=== PATIENT | female | born 1995 | race Caucasian/White ===

== ENCOUNTER 2017-12-09 01:15 | Emergency (ER) | payer MEDICAID, SELFPAY ==
[2017-12-09 01:16] VITALS: BP 137/61; PULSE 85; RESP 18; TEMP 36.6; O2SAT 98; BMI 48.1
--- NOTE | 2017-12-09 01:43 | ED.VISSUMM ---
- ER Visit Summary Date of Service: 12/09/17 Chief Complaint: Anxiety History of Present Illness: The patient is a 22 F with a history of depression and anxiety. She was on Zoloft but stopped that medication when she was found that she was . She is currently 27 weeks. 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 The resident apparently was trying to hang himself that she has been upset all evening. Patient states she feels like she is on the verge of having a panic attack. Patient denies suicidal thoughts. Physical Examination: Vital signs are unremarkable. Patient sitting upright in bed no acute distress. Heart is regular rate and rhythm. Lung sounds are clear. Abdomen is soft and nontender. Test Results: [] Emergency Department Course and Treatment: heart tones are measured at 147. Patient has had no abdominal cramping or spotting. I spoke with Dr. Irene, on-call for DIRECTOR OF SOFTWARE DEVELOPMENT. At this point she can use Vistaril, BuSpar, or Benadryl. Should be given dose of Vistaril here and a prescription for the same. Patient may also restart her Zoloft and this has been relayed to her. Treatment Plan: [] Disposition: Discharge Impression: 1. Anxiety 2. 27 week This note was generated with [employer] dictation software. It may contain incorrect words, spelling, and punctuation that were not noted in review of the chart prior to signing ED Disposition - Plan for ED Patient: Chief Complaint: Anxiety Referrals: Holly Boone NP-C [Primary Care Provider] -
--- NOTE | 2017-12-09 01:45 | ED.DEP ---
ED Disposition - Plan for ED Patient: Disposition: Home or Assisted Living Chief Complaint: Anxiety Instructions: ED Panic Attack Prescriptions: hydrOXYzine pamoate capsule [Vistaril] 50 mg PO TID PRN PRN #30 capsule PRN Reason: Anxiety Referrals: Holly Boone NP-C [Primary Care Provider] - Leona Watts MD [STAFF PHYSICIAN] -
[2017-12-09] MEDS: hydrOXYzine PAM 25 MG Capsule 50 MG PO (01:48)
[2017-12-09 01:58] VITALS: PULSE 86; RESP 18; O2SAT 99
== END 2017-12-09 01:58 | disposition home or self-care (01) ==
PROVIDERS: Emergency Provider Emergency Medicine; Family Provider Nurse Practitioner Family; PCP Nurse Practitioner Family
DX: O99.342 Other mental disorders complicating pregnancy, second trimester (principal); F41.9 Anxiety disorder, unspecified; F32.9 Major depressive disorder, single episode, unspecified; Z3A.27 27 weeks gestation of pregnancy
CPT/HCPCS: 99283

== ENCOUNTER 2018-03-08 16:20 | Outpatient (CLI) | payer MEDICAID, SELFPAY ==
[2018-03-08 16:32] VITALS: BMI 46.7
[2018-03-08 17:14] LABS: Hematocrit 36.8 % (37-47); Hemoglobin 12.4 g/dl (12.0-15.0); Mean Corp Hgb Conc 33.7 g/gl (32-36); Mean Corpuscular Hgb 27.8 pg (27.0-32.0); Mean Corpuscular Volume 82.5 fL (81-99); Mean Platelet Vol. 11.2 fl (6.2-12.0); Platelet Count 263 K/mm3 (150-450); RBC Distribution Width CV 14.6 % (11.6-14.6); Red Blood Count 4.46 M/mm3 (4.2-5.4); White Blood Count 11.9 K/mm3 (4.4-11.0)
[2018-03-08 17:16] LABS: Scan Indicated on CBC? Y/N NO
--- NOTE | 2018-03-08 17:24 | OB.TRI.NOTE ---
History of Present Illness Date of Service: 03/08/18 Was patient seen by the physician?: Yes Reason For Visit: BLOOD PRESSURE Final SANDEEP: 03/10/18 Gestational age: 39 Weeks and 5 Days Allergies No Known Allergies Allergy (Verified 12/09/17 01:19) NST - FHR Rate Baby A Baseline: 125 Variability:: Moderate Accelerations:: 15 x 15 Decelerations:: None NST Reactive:: Yes Uterine Activity:: quiet Impression/Plan Reactive NST for elevated BP in BP's normal on L&D If labs normal will d/c home
[2018-03-08 17:27] LABS: International Normalized Ratio 0.9; Prothrombin Time (Protime)PT. 12.5 SECONDS (11.7-14.9)
[2018-03-08 17:28] LABS: Partial Thromboplast Time 28.3 Seconds (24.1-36.2)
[2018-03-08 17:34] LABS: AST(SGOT) 11 U/L (15-37); Alanine Aminotransfer ALT/SGPT 10 U/L (13-56); Creatinine, Serum 0.52 mg/dL (0.55-1.02); EST Glomerular Filtration Rate 158 mL/min (>60); Est Glom Filt Rate - Afr Amer 191 mL/min (>60); Estimated Creatinine Clearance 155.29 ml/min; Uric Acid 5.7 mg/dL (2.6-6.0)
[2018-03-08 18:23] LABS: Protein, Urine (Random) 31.5 mg/dL (<11.9); Protein:Creat Ratio 258 mg/g CRE (0-200)
== END 2018-03-08 18:10 | disposition home or self-care (01) ==
LOC: WPOUT 16:24 → WP 16:24
PROVIDERS: Family Provider Nurse Practitioner Family; PCP Nurse Practitioner Family; Visit Provider Obstetrics & Gynecology
DX: O26.893 Other specified pregnancy related conditions, third trimester (principal); R03.0 Elevated blood-pressure reading, without diagnosis of hypertension; Z3A.39 39 weeks gestation of pregnancy
CPT/HCPCS: 59025; 59050; 82565; 82570; 84156; 84450; 84460; 84550; 85027; 85610; 85730; 99218; G0378

== ENCOUNTER 2018-03-16 17:05 | Inpatient (IN) | payer MEDICAID, SELFPAY ==
[2018-03-16] MEDS: Lactated Ringers 1,000 ML 50 ML IV (17:30)
[2018-03-16 18:01] VITALS: BMI 44.8
[2018-03-16 18:05] LABS: Hematocrit 36.8 % (37-47); Hemoglobin 12.4 g/dl (12.0-15.0); Mean Corp Hgb Conc 33.7 g/gl (32-36); Mean Corpuscular Hgb 27.7 pg (27.0-32.0); Mean Corpuscular Volume 82.3 fL (81-99); Mean Platelet Vol. 11.1 fl (6.2-12.0); Platelet Count 228 K/mm3 (150-450); RBC Distribution Width CV 14.9 % (11.6-14.6); RBC Distribution Width SD 43.7 fl (35.1-43.9); Red Blood Count 4.47 M/mm3 (4.2-5.4)
[2018-03-16 18:10] LABS: Scan Indicated on CBC? Y/N NO
[2018-03-16] MEDS: miSOPROStol 25 MCG TABLET VAGINAL (18:25)
--- NOTE | 2018-03-16 20:32 | PCM.HP.OB ---
History Date of Admission: 03/16/18 Final SANDEEP: 03/10/18 Final SANDEEP Source: US <20 weeks Gestational age: 40 Weeks and 6 Days History of this : This is a 22 year-old, G1, P0, at 40.6 weeks gestational age here for IOL due to Post edc. pt reports no vaginal bleeding, LOF or regular contractions. pt reports good fm. Following patient for LGA- last ultrasound done in office on 03/12/18 showed EFW approx 4000grams- 8lb 14oz. pt had abnormal 1hr GCT but passed 3hr GTT with only one abnormal value. Allergies No Known Allergies Allergy (Verified 12/09/17 01:19) Home Medications: Home Medications Pnv No.122/Iron/Folic Acid [ Multi Tablet] 1 each PO DAILY 12/09/17 hydrOXYzine pamoate capsule [Vistaril] 25 mg PO TID PRN PRN 03/16/18 Smoking Status: Never smoker Alcohol: None Number of Fetus(es): 1 Heart Tracin mod taylor, + accels no decels TOCO Analysis: irregular History Past Pregnancies: Past Pregnancies Delivery Date Name GA/Weeks Outcome Route Weight Infant Gender Labor Length Anesthesia Delivery Location Provider FOB Labs: O+, HIV neg, HEP B neg, Rub Imm, syphilis neg, GBS neg Expected Delivery Method: Spontaneous Vaginal Review of Systems Constitutional: Denies: Anorexia HEENT: Denies: Head Aches Cardiovascular: Denies: Chest Pain Respiratory: Denies: Cough Gastrointestinal: Denies: Abdominal Pain Physical Exam General: Alert, Oriented x3 Abdomen: Soft, Non Tender, Gravid Neurological: Cranial nerves II-XII grossly intact DIRECTOR EQUIPMENT: Normal external genitalia Estimated gestational size: Large for gestational age Presentation: Cephalic Cervix Dilation (cm): 4 Station: -2 Effacement (%): 70 Assessment/Plan This is a 22 year-old, G1, P0, at 40.6 weeks gestational age here for IOL for POST EDC 1) received one dose of vaginal cytotec- made cervical change- AROM performed - IFM and IUPC placed. ?? light meconium but only minimal fluid expelled after AROM 2) Pitocin to start at approx 10:30pm 3) monitor fhr/toco 4) epidural for pain 5) anticipate
--- NOTE | 2018-03-16 20:37 | HP.PCM_ITS ---
History Date of Admission: 03/16/18 Final SANDEEP: 03/10/18 Final SANDEEP Source: US <20 weeks Gestational age: 40 Weeks and 6 Days History of this : This is a 22 year-old, G1, P0, at 40.6 weeks gestational age here for IOL due to Post edc. pt reports no vaginal bleeding, LOF or regular contractions. pt reports good fm. Following patient for LGA- last ultrasound done in office on showed EFW approx 4000grams- 8lb 14oz. pt had abnormal 1hr GCT but passed 3hr GTT with only one abnormal value. Allergies No Known Allergies Allergy (Verified 12/09/17 01:19) Home Medications: Home Medications Pnv No.122/Iron/Folic Acid [ Multi Tablet] 1 each PO DAILY 12/09/17 hydrOXYzine pamoate capsule [Vistaril] 25 mg PO TID PRN PRN 03/16/18 Smoking Status: Never smoker Alcohol: None Number of Fetus(es): 1 Heart Tracin mod taylor, + accels no decels TOCO Analysis: irregular History Past Pregnancies: Past Pregnancies Delivery Date Name GA/Weeks Outcome Route Weight Infant Gender Labor Length Anesthesia Delivery Location Provider FOB Labs: O+, HIV neg, HEP B neg, Rub Imm, syphilis neg, GBS neg Expected Infant Delivery Method: Spontaneous Vaginal Review of Systems Constitutional: Denies: Anorexia HEENT: Denies: Head Aches Cardiovascular: Denies: Chest Pain Respiratory: Denies: Cough Gastrointestinal: Denies: Abdominal Pain Physical Exam General: Alert, Oriented x3 Abdomen: Soft, Non Tender, Gravid Neurological: Cranial nerves II-XII grossly intact GOLD BURNISHER: Normal external genitalia Estimated gestational size: Large for gestational age Presentation: Cephalic Cervix Dilation (cm): 4 Station: -2 Effacement (%): 70 Assessment/Plan This is a 22 year-old, G1, P0, at 40.6 weeks gestational age here for IOL for POST EDC 1) received one dose of vaginal cytotec- made cervical change- AROM performed - IFM and IUPC placed. ?? light meconium but only minimal fluid expelled after AROM 2) Pitocin to start at approx 10:30pm 3) monitor fhr/toco 4) epidural for pain 5) anticipate
[2018-03-16] MEDS: Oxytocin 30 units/NS 500 ml 30 UNITS/500 ML IV.SOLN IV (22:24)
[2018-03-17] MEDS: Lactated Ringers 1,000 ML 50 ML IV ×3 (00:29→09:38)
[2018-03-17] MEDS: fentaNYL-bupivacaine (epidural) 100 ML BAG EPIDURAL ×2 (00:52→05:22)
[2018-03-17] MEDS: Oxytocin 30 units/NS 500 ml 30 UNITS/500 ML IV.SOLN 334 UNITS IV (08:08)
[2018-03-17] MEDS: Oxytocin 30 units/NS 500 ml 30 UNITS/500 ML IV.SOLN 167 UNITS IV (08:38)
--- NOTE | 2018-03-17 09:00 | NURSING ---
See hemorrhage record for post-delivery hemorrhage.
--- NOTE | 2018-03-17 09:07 | OP.PCM_ITS ---
Vaginal Delivery Maternal Presentation: Medically Indicated Induction Method of Induction: Pitocin, Amniotomy, Cytotec Medical Reason for Induction: Post term Amniotic Membrane Rupture Type: Artificial Amniotic Fluid Description: Lightly stained meconium Final SANDEEP: 03/10/18 Gestational age: 41 Weeks and 0 Days Date of Procedure: 03/17/18 Pre-Operative Diagnosis: POST TERM Post-Operative Diagnosis: LIVE MALE INFANT, POST HEMORRHAGE Surgery/ Procedure Performed: Spontaneous Vaginal Delivery Type of Anesthesia: Epidural Description of Procedure: PT PUSHED FOR APPROXIMATELY 3.5- ON MY ARRIVAL FETUS WAS OP, GENTLE ROTATION TO ABISAI AND PATIENT DELIVERED WITH GOOD MATERNAL EFFORT- NUCHAL X 1 AND AROUND BODY - INFANT STUNNED AT DELIVERY- CORD CLAMPED AND CUT AND HANDED TO NURSERY TEAM. MECONIUM NOTED AT DELIVERY. SMALL FIRST DEGREE VAGINAL LACERATION NOTED AT POSTERIOR [place]CHE[place]E AND RIGHT LATERAL VAGINAL WALL - PLACENTA WAS DELIVERED SPONTANEOUSLY WITHOUT COMPLICATION. ONCE DELIVERY OF PLACENTA LARGE OPEN SINUS NOTED FROM LOWER UTERINE SEGMENT. THE CERVIX WAS EVALUATED AND NO LACERATIONS WERE NOTED. FUNDAL MASSAGE, INTERNAL EXPLORATION AND ULTRASOUND PERFORMED- NO RETAINED POC NOTED. CONTINUED WITH MASSAGE- METHERGINE GIVEN WITHOUT ADEQUATE RESPONSE, EXTRA HELP TO ROOM CALLED FOR- HEMABATE GIVEN DIRECTLY INTO LOWER UTERINE SEGMENT AND CYTOTEC PER RECTUM. BLEEDING STILL PERSISTED- NO OTHER LACERATION WERE NOTED- STILL APPRECIATED BRISK BLEEDING FROM LOWER UTERINE SEGMENT. AT THIS TIME BALLOON TAMPONADE WAS PLACED WITH 300CC NS- PT THEN PROCEEDED TO GET SICK AND BALLOON EXPELLED DURING MATERNAL VOMITING. AT THIS TIME FUNDAL MASSAGE WAS STILL IN PROCESS- BLEEDING WAS NOTED TO BE SLOWING. TOTAL EBL APPROX 1200CC. A SECOND IV LINE WAS STARTED. WILL REPEAT CBC IN APPROX 3 HOURS FROM NOW AND AGAIN TOMORROW- WILL REPEAT SOONER IF PATIENT IS SYMPTOMATIC. Presentation: Vertex Placental Delivery Description: Spontaneous Placenta Disposition: [facility] Cord Vessel Description: 3 Vessels Nuchal Cord Compression: Without compression Cord Entanglement: Around neck x 1, loose Drain: Plascencia to straight drain Estimated Blood Loss: 1200 A gender: Male (1 minute): 6 (5 minute): 9 Episiotomy Description: None Laceration: Vaginal Extension/lac - REPAIRED WITH 2-0 VICRYL, SMALL BLEEDING NOTED BY CLITORAL ANTUNEZ- PRESSURE HELD- STILL WITH SOME BLEEDING- 3-0 RAPIDE INTERRUPTED SUTURE PLACED FOR HEMOSTASIS, 1st degree Medications given after delivery: IV Pitocin, IM Methergin, IM Hemabate, - - CYTOTEC PER RECTUM. Complications: - - POST HEMORRHAGE
[2018-03-17] MEDS: Acetaminophen 500 MG Tablet 1000 MG PO ×2 (09:48→22:56)
[2018-03-17 12:03] LABS: Hematocrit 32.6 % (37-47); Hemoglobin 10.8 g/dl (12.0-15.0); Mean Corp Hgb Conc 33.1 g/gl (32-36); Mean Corpuscular Hgb 27.6 pg (27.0-32.0); Mean Corpuscular Volume 83.4 fL (81-99); Mean Platelet Vol. 10.6 fl (6.2-12.0); Platelet Count 216 K/mm3 (150-450); RBC Distribution Width CV 15.1 % (11.6-14.6); RBC Distribution Width SD 45.4 fl (35.1-43.9); Red Blood Count 3.91 M/mm3 (4.2-5.4); White Blood Count 22.5 K/mm3 (4.4-11.0)
[2018-03-17 12:05] LABS: Scan Indicated on CBC? Y/N YES- FLAGS NOTED
--- NOTE | 2018-03-17 13:15 | NURSING ---
Update given to Dr. Irene on patient status given including vital signs, small amount of bleeding, firm fundus, CBC results, and presence of diaz catheter due to not being out of bed yet. No new orders at this time. Will update physician as appropriate.
[2018-03-17 13:35] VITALS: BP 125/71; PULSE 107; RESP 18; TEMP 37.6; O2SAT 97
[2018-03-17 15:22] VITALS: TEMP 37.3
[2018-03-17 16:44] VITALS: BP 123/66; PULSE 116; RESP 18; TEMP 38.1; O2SAT 98
--- NOTE | 2018-03-17 17:40 | NURSING ---
Up to bathroom with staff assistance x2. Patient tolerated well. Linens changed and mattress pad placed on bed. Pericare performed.
[2018-03-17] MEDS: Ibuprofen 600 MG Tablet PO (17:53)
--- NOTE | 2018-03-17 19:03 | NURSING ---
Patient assisted back to bed with a wheel chair due to feeling dizzy upon standing. Resting comfortably in bed. Tolerated transfer well.
[2018-03-17 19:22] VITALS: TEMP 37.8
--- NOTE | 2018-03-17 19:33 | NURSING ---
Bedside shift report given to Kim Mancia RN. She will assume care of patient at this time.
[2018-03-17 19:38] VITALS: BP 112/55; PULSE 103; RESP 16; TEMP 37
[2018-03-18] VITALS: BP 100/51; PULSE 97; RESP 18; TEMP 36.8
[2018-03-18 04:00] VITALS: BP 113/60; PULSE 94; RESP 18; TEMP 36.8
[2018-03-18 04:33] LABS: Hematocrit 24.4 % (37-47); Hemoglobin 8.1 g/dl (12.0-15.0); Mean Corp Hgb Conc 33.2 g/gl (32-36); Mean Corpuscular Hgb 28.4 pg (27.0-32.0); Mean Corpuscular Volume 85.6 fL (81-99); Mean Platelet Vol. 10.4 fl (6.2-12.0); Platelet Count 191 K/mm3 (150-450); RBC Distribution Width CV 15.1 % (11.6-14.6); RBC Distribution Width SD 45.1 fl (35.1-43.9); Red Blood Count 2.85 M/mm3 (4.2-5.4); White Blood Count 14.4 K/mm3 (4.4-11.0)
[2018-03-18 04:36] LABS: Scan Indicated on CBC? Y/N NO
[2018-03-18] MEDS: Acetaminophen 500 MG Tablet 1000 MG PO (08:42)
[2018-03-18 08:45] VITALS: BP 114/64; PULSE 93; RESP 24; TEMP 36.4; O2SAT 97
--- NOTE | 2018-03-18 09:01 | PCM.PN.OB ---
Subjective: pt seen at bedside, doing well. pt reports good pain control. lochia mild. pt denies CP, SOB, dizziness or palpitations when ambulation or resting. - Physical Exam General: Alert, Oriented x3 Abdomen: Soft, Non-Distended, - - fundus firm Extremities: No Calf Tenderness Vital Signs Temp Pulse Resp BP Pulse Ox 97.5 F L 93 24 H 114/64 97 03/18/18 08:45 03/18/18 08:45 03/18/18 08:45 03/18/18 08:45 03/18/18 08:45 Oxygen Delivery Method Room Air Weight: 125.9 kg Body Mass Index (BMI) 44.8 Intake and Output for Last 24 Hours 03/16/18 03/17/18 03/18/18 23:59 23:59 23:59 Intake Total 4453 / 4453 Output Total 1700 / 1700 550 / 550 Balance 2753 / 2753 -550 / -550 Laboratory Tests Past 24 Hrs 03/17/18 03/18/18 11:55 04:25 WBC 22.5 H 14.4 H RBC 3.91 L 2.85 L Hgb 10.8 L 8.1 L Hct 32.6 L 24.4 L MCV 83.4 85.6 MCH 27.6 28.4 MCHC 33.1 33.2 RDW 15.1 H 15.1 H RDW Differential 45.4 H 45.1 H Plt Count 216 191 MPV 10.6 10.4 Medical Necessity - Tobacco Use Smoking Status: Never smoker Assessment/Plan PPD#1, with acute blood loss anemia- immediate Hemorrhage- stable today 1) bleeding mild- will recheck cbc at noon to ensure stable 2) Ambulation 3) pain mgmt 4) routine care
--- NOTE | 2018-03-18 09:04 | DCINST_ITS ---
Discharge Diet: No Restrictions Discharge Activity: Return to Normal Activity, May not drive while taking narcotic pain medications., May Shower May resume sexual activity in: 4-6 weeks Additional Activity Instructions:: Nothing in the vagina for 4-6 weeks. You may return to work/school in 6 weeks. Call your doctor if your incision/area has: Continuous Slow Oozing, Sudden Increased Bleeding, Increased Pain/ Swelling, Increased Redness, Foul Smelling Discharge Additional Instructions: If you experience any of the following, contact your healthcare provider. * Bleeding that soaks a pad every hour for 2 hours * Fever 100.4 or higher * Unrelieved incision or abdominal pain * Swelling, redness, discharge or bleeding from your incision or episiotomy site * Your incision begins to separate * Problems urinating (including inability to urinate or burning while urinating) . * Visual changes * Severe headache * Flu-like symptoms * Pain or redness in one of both of your breasts * Pain, warmth, tenderness or swelling in your legs, especially the calf area * Frequent nausea and vomiting * Symptoms of depression or anxiety If you experience any of the following, call 911 or go to the nearest Emergency Room. * Chest pain * Problems breathing * Seizure activity * Partial or complete paralysis of a body part, slurred speech, weakness or drooping of the face, or a sudden inability to walk or hold your balance Allergies/Adverse Reactions: Allergies No Known Allergies Allergy (Verified 12/09/17 01:19) Medications to take at Discharge Pnv No.122/Iron/Folic Acid [ Multi Tablet] 1 each PO DAILY 12/09/17 hydrOXYzine pamoate capsule [Vistaril pamoate capsule] 25 mg PO TID PRN PRN Naproxen [Naprosyn] 250 - 500 mg PO Q8H PRN PRN #30 tab 03/18/18 The following prescriptions were given: Naproxen [Naprosyn] 250 - 500 mg PO Q8H PRN PRN #30 tab PRN Reason: Mild Pain (1-310) When: Call to make an appointment with your doctor in 6 weeks. If you had elevated Blood Pressure or 4th degree laceration you will need to be seen in 2 weeks. Primary Care Physician: Holly Boone NP-C [Primary Care Provider] - Test Results: Test results from this visit will be discussed in further detail at your follow- up appointment, if applicable.
[2018-03-18 12:13] LABS: Hemoglobin 8.1 g/dl (12.0-15.0); Mean Corp Hgb Conc 32.4 g/gl (32-36); Mean Corpuscular Hgb 27.5 pg (27.0-32.0); Mean Corpuscular Volume 84.7 fL (81-99); Platelet Count 170 K/mm3 (150-450); RBC Distribution Width CV 15.5 % (11.6-14.6); Red Blood Count 2.95 M/mm3 (4.2-5.4); White Blood Count 12.3 K/mm3 (4.4-11.0)
[2018-03-18 12:15] LABS: Scan Indicated on CBC? Y/N NO
[2018-03-18] MEDS: Naproxen 250 MG Tablet PO (13:44)
[2018-03-18 13:45] VITALS: BP 118/66; PULSE 96; TEMP 36.7; O2SAT 97
--- NOTE | 2018-03-18 15:00 | NURSING ---
Received report from Cindy Monterroso RN. I will assume care of patient at this time.
[2018-03-18 19:55] VITALS: BP 95/47; PULSE 109; RESP 16; TEMP 36.6
[2018-03-19] MEDS: Acetaminophen 500 MG Tablet 1000 MG PO (01:20)
[2018-03-19 01:25] VITALS: BP 125/72; PULSE 98; RESP 16; TEMP 36.8
--- NOTE | 2018-03-19 08:12 | PCM.PN.OB ---
Subjective: Patient sitting up in bed, denies any complaints or concerns at this time. 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 Patient reports no issues with ambulation or urination. Patient also has had +BM without difficulty. Patient requests discharge to home today. Objective: Nipples without cracks or blisters Abdomen NT x 4 quadrants, FF midline 2FB below umbilicus +2/4 reflexes in LE, no edema in LE Perineum well approximated Scant rubra lochia - Physical Exam General: Alert, Oriented x3, Cooperative HEENT: Atraumatic, Normocephalic Neck: Supple Lungs: Normal air movement Cardiovascular: Regular rate, No murmurs Abdomen: Soft, Non Tender Extremities: No edema, Capillary Refill Less than 3 Seconds Skin: No rashes, No breakdown Musculoskeletal: No Tenderness to Palpation of Joints or Extremities Neurological: Cranial nerves II-XII grossly intact, Deep Tendon Reflexes 2+/4 and Symmetrical Psych/Mental Status: Normal Affect, Appropriate, Alert and oriented to time, place, person, mood and affect Vital Signs Temp Pulse Resp BP Pulse Ox 98.2 F 98 16 125/72 H 97 03/19/18 01:25 03/19/18 01:25 03/19/18 01:25 03/19/18 01:25 03/18/18 13:45 Oxygen Delivery Method Room Air Weight: 277 lb 8.992 oz Body Mass Index (BMI) 44.8 Intake and Output for Last 24 Hours 03/17/18 03/18/18 03/19/18 23:59 23:59 23:59 Intake Total 4453 / 4453 Output Total 1700 / 1700 550 / 550 Balance 2753 / 2753 -550 / -550 Laboratory Tests Past 24 Hrs 03/18/18 12:04 WBC 12.3 H RBC 2.95 L Hgb 8.1 L Hct 25.0 L MCV 84.7 MCH 27.5 MCHC 32.4 RDW 15.5 H RDW Differential 48.0 H Plt Count 170 MPV 10.0 Medical Necessity - Tobacco Use Smoking Status: Never smoker Assessment/Plan 22 y/o s/p , PPD #2, Anemia in Period, Normal PP Course P: 1) Discharge to home pending discharge 2) Feosol 45mg PO daily #30 disp, no RF 3) Anticipatory PP teaching, all questions answered 4) RTC in 6 weeks for next PP visit Dacia RICHARD
[2018-03-19 09:15] VITALS: BP 108/63; PULSE 106; RESP 18; TEMP 36.6
[2018-03-19] MEDS: Ferrous Sulfate 325 MG Tablet PO (09:30)
--- NOTE | 2018-03-19 11:20 | CASEMGMT ---
Social Work Note Please see attached assessment. Introduced self and role to MOB and FOB. MOB presents with pleasant affect as evidenced by smiling and willingness to participate in assessment. MOB reports to have been with FOB for 3 years, and they are presently engaged. They live together and report to have adequate supports among family/friends. MOB is employed PRN at [employer] and FOB is employed FT. Claim to be financially stable. Report to have all necessary supplies and hospital to aide in getting breast pump prior to discharge. MOB reports hx of anxiety/depression. States that she quit taking medication once she was and the OBGYN did prescribe her medication for anxiety she was having in the evenings. Denies presently being in counseling, but was in high school. Declines counseling services at this time, but made aware of counseling services in her area. Identifies talking to FOB as her coping mechanism and feels that her symptoms are well managed. Educated to PPD and pt expresses understanding. Provided with packet of information for review. Educated to WIC and [facility]. Pt declined [facility] referral at this time, but did request information on WIC and intends on being established in the [facility] they recently moved to, [place]. No further needs identified at this time. MOB and FOB made aware that SW is available if needs arise. RN updated. Su Bach, SHARED SERVICES REPRESENTATIVE, WORKFORCE DEVELOPMENT ASSISTANT
[2018-03-19 12:38] VITALS: BP 127/78; PULSE 88; RESP 20; TEMP 36.3
== END 2018-03-19 12:45 | disposition home or self-care (01) | DRG 375 ==
PROVIDERS: Admitting Provider Obstetrics & Gynecology; Family Provider Nurse Practitioner Family; PCP Nurse Practitioner Family; Visit Provider Obstetrics & Gynecology
DX: O48.0 Post-term pregnancy (principal); D62 Acute posthemorrhagic anemia; O90.81 Anemia of the puerperium; O72.1 Other immediate postpartum hemorrhage; O70.0 First degree perineal laceration during delivery; O36.63X0 Maternal care for excessive fetal growth, third trimester, not applicable or unspecified; O69.81X0 Labor and delivery complicated by cord around neck, without compression, not applicable or unspecified; O77.0 Labor and delivery complicated by meconium in amniotic fluid; O99.344 Other mental disorders complicating childbirth; F32.9 Major depressive disorder, single episode, unspecified; F41.9 Anxiety disorder, unspecified; O99.214 Obesity complicating childbirth; E66.01 Morbid (severe) obesity due to excess calories; Z79.899 Other long term (current) drug therapy; Z37.0 Single live birth; Z3A.41 41 weeks gestation of pregnancy
CPT/HCPCS: 59025; 59050; 76815; 85027; 86850; 86900; 99218; J7120; G0378

== ENCOUNTER 2018-03-20 14:35 | Outpatient (CLI) | payer MEDICAID, SELFPAY | END 2018-03-20 15:05 | disposition home or self-care (01) | LOC: WPOUT 14:42 → WP 14:42 | PROVIDERS: Family Provider Nurse Practitioner Family; PCP Nurse Practitioner Family; Visit Provider Obstetrics & Gynecology | DX: Z39.1 Encounter for care and examination of lactating mother (principal) | CPT/HCPCS: 96152 ==

== ENCOUNTER 2018-04-06 14:20 | Emergency (ER) | payer MEDICAID, SELFPAY ==
[2018-04-06 14:22] VITALS: BP 125/81; PULSE 100; RESP 18; TEMP 36.4; O2SAT 97; BMI 44.1
--- NOTE | 2018-04-06 14:48 | ED.VISSUMM ---
- ER Visit Summary Date of Service: 04/06/18 Chief Complaint: Abdominal pain History of Present Illness: The patient is a 22 F who presents with abdominal pain. Patient started with pain earlier today. Sharp in the right upper quadrant and wraps around her epigastric area. Nausea without vomiting. No diarrhea or constipation. Denies any urinary symptoms. She tried Tylenol extra strength which did help her pain at home. She denies fevers. No abdominal surgeries in the past. She is 3 weeks of a vaginal delivery. She had some postdelivery hemorrhage that contributed to some anemia but is now stable. Physical Examination: Vital signs reviewed. HEENT exam unremarkable. Heart is regular rate and rhythm without murmurs. Lungs are clear to auscultation. Abdomen is soft and nontender. Extremities reveal no edema. Skin exam normal. Neurologic exam normal. Test Results: White blood cell count 13.4, hemoglobin 10.3, alkaline phosphatase 168, AST 57. Urinalysis does reveal 10-25 white blood cells, red blood cells and epithelial cells Emergency Department Course and Treatment: Patient was given morphine and Zofran and feels much better. I feel that her labs are present a UTI. I do not feel that this is gallbladder related. Patient will be treated with Bactrim at home. She will need to follow-up with her PCP. Treatment Plan: [] Disposition: Discharge Impression: UTI This note was generated with [email or web address] dictation software. It may contain incorrect words, spelling, and punctuation that were not noted in review of the chart prior to signing ED Disposition - Plan for ED Patient: Chief Complaint: Abd Pain Referrals: Holly Boone, MATHIEU-C [Primary Care Provider] -
[2018-04-06] MEDS: Morphine 4 MG/ML Syringe IV (14:55)
[2018-04-06] MEDS: Ondansetron 4 MG/2 ML Vial IV (14:55)
[2018-04-06 15:05] LABS: Mucous, Urine 0 SEEN /hpf (<or=2+)
[2018-04-06 15:07] LABS: Color, Urine Yellow (Yellow); Glucose, Dipstick Normal (Normal); Ketone-Dipstick Negative (Negative); Leukocyte Esterase-Dipstick 500 /ul (Negative); Nitrite-Dipstick Negative (Negative); Occult Blood-Urine 25 /ul (Negative); Protein-Dipstick 30 mg/dl (Negative); Specific Gravity, Urine 1.015 (1.002-1.030); Urine Bilirubin Dipstick Negative (Negative); Urine Clarity Clear (Clear); Urine Urobilinogen Normal (Normal); Urine pH 6.5 (5.0 - 8.0)
[2018-04-06 15:08] LABS: Absolute Lymphocyte Count 2.08 X10^3/ul (0.83-4.51); Absolute Neutrophil Count 10.5 X10^3/uL (2.0-7.7); Basophil# 0.03 X10^3/uL; Basophil% 0.2 % (0-1); Eosinophil# 0.13 X10^3/uL; Hematocrit 33.4 % (37-47); Hemoglobin 10.3 g/dl (12.0-15.0); Lymphocyte # 2.08 X10^3/ul (4.0); Lymphocyte % 15.5 % (19-41); Mean Corp Hgb Conc 30.8 g/gl (32-36); Mean Corpuscular Hgb 25.3 pg (27.0-32.0); Mean Corpuscular Volume 82.1 fL (81-99); Mean Platelet Vol. 9.1 fl (6.2-12.0); Monocyte# 0.67 X10^3/uL; Neutrophil # 10.45 X10^3/uL (2.7-7.7); Neutrophil % 78.2 % (47-70); POSITIVE COUNT NO; POSITIVE DIFFERENTIAL NO; POSITIVE MORPHOLOGY NO; Platelet Count 368 K/mm3 (150-450); RBC Distribution Width CV 14.6 % (11.6-14.6); RBC Distribution Width SD 43.8 fl (35.1-43.9); Red Blood Count 4.07 M/mm3 (4.2-5.4); White Blood Count 13.4 K/mm3 (4.4-11.0)
[2018-04-06 15:23] LABS: ALB/GLOB Ratio 0.8 RATIO (0.9-2.4); AST(SGOT) 57 U/L (15-37); Alanine Aminotransfer ALT/SGPT 35 U/L (13-56); Albumin, Serum 3.3 g/dL (3.2-5.0); Alkaline Phosphatase 168 U/L (45-117); Anion Gap 8 (5-15); BUN 17 mg/dL (7-18); BUN/Creat Ratio 21.9 RATIO (10-20); Calcium,Total 8.9 mg/dL (8.5-10.1); Chloride 105 mmol/L (98-107); Creatinine, Serum 0.78 mg/dL (0.55-1.02); EST Glomerular Filtration Rate 100 mL/min (>60); Est Glom Filt Rate - Afr Amer 121 mL/min (>60); Estimated Creatinine Clearance 99.35 ml/min; Globulin 4.4 g/dL (2.2-4.2); Glucose 94 mg/dL (74-106); Lipase 240 U/L (73-393); Potassium 4.1 mmol/L (3.5-5.1); Protein, Total 7.7 g/dL (6.4-8.2); Red Blood Cells-Urine 10-25 SEEN /hpf (0-5); Sodium Level 140 mmol/L (136-145); Squamous Epithelial Cells - UA 10-25 SEEN /hpf (5-10); Transitional Epithelial - Ur 0-5 SEEN /hpf (0-5); White Blood Cells 10-25 SEEN /hpf (0-5)
[2018-04-06 15:24] LABS: Bacteria 3+ /hpf (None Seen)
--- NOTE | 2018-04-06 15:33 | ED.DEP ---
ED Disposition - Plan for ED Patient: Disposition: Home or Assisted Living Chief Complaint: Abd Pain Instructions: ED UTI Cystitis Female Prescriptions: Smz/Tmp Ds [Bactrim Ds] 1 tab PO BID #14 tab Referrals: Holly Boone NP-C [Primary Care Provider] -
== END 2018-04-06 15:49 | disposition home or self-care (01) ==
PROVIDERS: Emergency Provider Emergency Medicine; Family Provider Nurse Practitioner Family; PCP Nurse Practitioner Family
DX: O86.89 Other specified puerperal infections (principal); N39.0 Urinary tract infection, site not specified; Z79.899 Other long term (current) drug therapy; Z86.2 Personal history of diseases of the blood and blood-forming organs and certain disorders involving the immune mechanism
CPT/HCPCS: 80053; 81001; 83690; 85025; 96374; 96375; 99283; A4216; J2405

== ENCOUNTER 2018-05-30 03:12 | Emergency (ER) | payer MEDICAID, SELFPAY ==
[2018-05-30 03:13] VITALS: BP 137/70; PULSE 75; RESP 22; TEMP 36.3; O2SAT 97; BMI 45.7
--- NOTE | 2018-05-30 03:37 | ED.VIS.GEN ---
History of Present Illness Chief Complaint: Flank Pain Informant: Patient Onset: Yesterday Context: Gradual Onset Timing: Continuous, Waxes and wanes Quality: crampy/achy Location: upper abd, bilat / all the way across Current Severity: Moderate Maximum Severity: Moderate Worsened by: when bladder is full Relieved by: after finished urinating but no dysuria Associated Symptoms: n/v w/o hematemesis. radiates to low back bilaterally but worse on R. Narrative: Patient having urinary frequency but no urgency or dysuria or hematuria. Had some chills but check her temperature and it was 98. Lillian like this 1-2 months ago when she was diagnosed with a urinary tract infection. She took antibiotics and her symptoms did go away. Unknown if food affected her symptoms. Past Medical History - Allergies and Home Meds Allergies/Adverse Reactions: Allergies No Known Allergies Allergy (Verified 04/06/18 14:22) Primary Care Physician: Holly Boone NP-C [Primary Care Provider] - Surgical History: no surgical history Lives: Spouse/ Significant Other Smoking Status: Never smoker Drugs: None Review of Systems General: Reports: Chills. Denies: Fever ENT: Denies: Rhinorrhea, Sore throat Cardiovascular: Denies: Chest pain, Palpitations Respiratory: Denies: Dyspnea, Cough Gastrointestinal: Reports: Abdominal pain, Nausea, Vomiting. Denies: Diarrhea, Constipation, Melena, Hematochezia Genitourinary: Reports: Frequency. Denies: Dysuria, Hematuria Musculoskeletal: Reports: Back pain. Denies: Neck pain, Swelling, Extremity Pain Skin: Denies: Rash, Wounds Neurological: Denies: Headache, Weakness, Parasthesia Endocrine: Denies: Polyuria, Polydipsia Physical Exam Vital Signs/Narrative: Vital Signs Temp Pulse Resp BP Pulse Ox 05/30/18 03:13 97.4 F L 75 22 H 137/70 H 97 Inital Vital Signs reviewed: Yes General: Well nourished, Well developed, Obese Head: Normocephalic, Atraumatic Eyes: Perrl, EOMI ENT: Moist mucous membranes, No rhinorrhea Neck: Supple, Nontender Cardiovascular: Regular rate, Regular rhythm, No murmurs Respiratory: No distress, CTA bilaterally, Chest nontender Abdomen: Soft, Nondistended, Normal bowel sounds, Tender - across entire upper abd. Negative for: Guarding, Rebound tenderness, Miranda's sign Back: Normal Inspection - bilat, but also tender to superficial palpation. no rashes or lesions noted., CVA tenderness - bilat, but also tender to superficial palpation. no rashes. Extremities: Nontender, No edema Skin: Normal color, No rash Neurological: Alert, Oriented x3, Cranial nerves II-XII grossly intact, Normal Strength, Normal Sensation, Normal Gait Psychological: Normal affect Diagnostic/Tx/Re-eval Laboratory Results 05/30/18 05/30/18 05/30/18 03:46 03:46 04:00 WBC 12.4 H RBC 5.05 Hgb 11.8 L Hct 38.0 MCV 75.2 L MCH 23.4 L MCHC 31.1 L RDW 16.0 H RDW Differential 43.7 Plt Count 326 MPV 9.8 Immature Gran % (Auto) 0.200 Neut % (Auto) 75.1 H Lymph % (Auto) 16.8 L Mcpherson % (Auto) 7.0 Eos % (Auto) 0.7 Baso % (Auto) 0.2 Absolute Neuts (auto) 9.3 H Absolute Lymphs (auto) 2.08 Total Counted Not Reportable Sodium Potassium Chloride Carbon Dioxide Anion Gap BUN Creatinine Estim Creat Clear Calc Est GFR (MDRD) Af Amer Est GFR (MDRD) Non-Af BUN/Creatinine Ratio Glucose Calcium Total Bilirubin AST ALT Alkaline Phosphatase Total Protein Albumin Globulin Albumin/Globulin Ratio Lipase Urine Color Yellow Urine Clarity Sl. Cloudy Urine pH 6.5 Ur Specific [place] 1.015 Urine Protein 30 H Urine Glucose (UA) Normal Urine Ketones Negative Urine Occult Blood 250 H Urine Nitrite Negative Urine Bilirubin Negative Urine Urobilinogen Normal Ur Leukocyte Esterase 100 H Urine RBC 10-25 SEEN Urine WBC 5-10 SEEN Ur Squamous Epith Cells 0-5 SEEN Urine Bacteria RARE Urine Mucus 0 SEEN Urine Test Negative 05/30/18 04:00 WBC RBC Hgb Hct MCV MCH MCHC RDW RDW Differential Plt Count MPV Immature Gran % (Auto) Neut % (Auto) Lymph % (Auto) Mcpherson % (Auto) Eos % (Auto) Baso % (Auto) Absolute Neuts (auto) Absolute Lymphs (auto) Total Counted Sodium 140 Potassium 4.1 Chloride 104 Carbon Dioxide 27.0 Anion Gap 9 BUN 17 Creatinine 0.88 Estim Creat Clear Calc 87.32 Est GFR (MDRD) Af Amer 104 Est GFR (MDRD) Non-Af 86 BUN/Creatinine Ratio 19.3 Glucose 128 H Calcium 9.1 Total Bilirubin 0.60 AST 58 H ALT 38 Alkaline Phosphatase 143 H Total Protein 7.9 Albumin 3.2 Globulin 4.7 H Albumin/Globulin Ratio 0.7 L Lipase 182 Urine Color Urine Clarity Urine pH Ur Specific [place] Urine Protein Urine Glucose (UA) Urine Ketones Urine Occult Blood Urine Nitrite Urine Bilirubin Urine Urobilinogen Ur Leukocyte Esterase Urine RBC Urine WBC Ur Squamous Epith Cells Urine Bacteria Urine Mucus Urine Test - Medical Decision Making Labs show a mild nonspecific leukocytosis, slightly elevated alkaline phosphatase and otherwise unremarkable liver enzymes, normal renal function, and ambiguous urinalysis, with negative nitrite, 100 leukocyte esterase, 5-10 white blood cells, and rare bacteria. I think this probably does not represent a urinary tract infection, so I sent a culture, which was not sent last time. I initially treated her with a GI cocktail, given that upper GI etiologies are in the differential diagnosis, it did not help her discomfort. I then gave her Toradol which did help. I reexamined her. She is nontender in the left upper quadrant, mildly tender in the epigastrium, and mild to moderately tender in the right upper quadrant where she states the pain is now focused. Her Miranda sign is negative. I did a bedside ultrasound, her gallbladder appears to be distended, the wall is within normal limits at 0.16 cm, and there are no stones or pericholecystic fluid on my exam. She is tender in the area of the gallbladder via ultrasound however. She is comfortable. Her vital signs are normal and she is afebrile. I do not think she has acute cholecystitis. On further questioning, she states she had pork sausage with sauerkraut tonight for dinner, prior to the pain starting again, and then she ate a piece of cheese in the morning which seemed to flared up as well. She presents on night clerk auditor when ultrasound is not available. She is given morphine and feeling better. I think the appropriate course here is to avoid fats in the diet as much as possible, to set her up for an outpatient ultrasound with results going to her PCP, and if negative, to follow-up for possible HIDA scan in order to rule out gallbladder as cause for her pain. We talked about upper GI etiologies as well. I think she is stable to be discharged home. She is comfortable with this plan. ED Disposition - Plan for ED Patient: Disposition: Home or Assisted Living Chief Complaint: Flank Pain Diagnosis: Upper abdominal pain of unknown etiology Instructions: ED Abdominal Pain Gallstone Poss Referrals: Holly Boone, BUSINESS ANALYSIS CONSULTANT-C [Primary Care Provider] - 3-5 Days (make appt for after you have your ultrasound performed, so that the results will more likely be available) Additional Instructions: Try your best to avoid fats in your diet, as this will be more likely to keep you pain-free if your pain has been caused by your gallbladder. Call [phone] and ask for radiology scheduling to schedule your ultrasound. Don't forget to take your order/prescription with you to the appt.
[2018-05-30 03:57] LABS: Mucous, Urine 0 SEEN /hpf (<or=2+)
[2018-05-30] MEDS: Ondansetron 4 MG/2 ML Vial IV (04:00)
[2018-05-30 04:04] LABS: Color, Urine Yellow (Yellow); Glucose, Dipstick Normal (Normal); Ketone-Dipstick Negative (Negative); Leukocyte Esterase-Dipstick 100 /ul (Negative); Nitrite-Dipstick Negative (Negative); Occult Blood-Urine 250 /ul (Negative); Protein-Dipstick 30 mg/dl (Negative); Specific Gravity, Urine 1.015 (1.002-1.030); Urine Bilirubin Dipstick Negative (Negative); Urine Clarity Sl. Cloudy (Clear); Urine Urobilinogen Normal (Normal); Urine pH 6.5 (5.0 - 8.0)
[2018-05-30 04:06] LABS: Internal QC Validated? YES +Cl - CLEAR BKGD; Pregnancy, Urine Negative Negative
[2018-05-30 04:09] LABS: Absolute Lymphocyte Count 2.08 X10^3/ul (0.83-4.51); Absolute Neutrophil Count 9.3 X10^3/uL (2.0-7.7); Basophil# 0.02 X10^3/uL; Basophil% 0.2 % (0-1); Eosinophil# 0.09 X10^3/uL; Eosinophils% 0.7 % (0-5); Hemoglobin 11.8 g/dl (12.0-15.0); Lymphocyte # 2.08 X10^3/ul (4.0); Lymphocyte % 16.8 % (19-41); Mean Corp Hgb Conc 31.1 g/gl (32-36); Mean Corpuscular Hgb 23.4 pg (27.0-32.0); Mean Corpuscular Volume 75.2 fL (81-99); Mean Platelet Vol. 9.8 fl (6.2-12.0); Monocyte# 0.87 X10^3/uL; Neutrophil # 9.27 X10^3/uL (2.7-7.7); Neutrophil % 75.1 % (47-70); Platelet Count 326 K/mm3 (150-450); RBC Distribution Width SD 43.7 fl (35.1-43.9); Red Blood Count 5.05 M/mm3 (4.2-5.4); White Blood Count 12.4 K/mm3 (4.4-11.0)
[2018-05-30 04:10] LABS: POSITIVE COUNT NO; POSITIVE DIFFERENTIAL NO; POSITIVE MORPHOLOGY NO
[2018-05-30 04:20] LABS: Squamous Epithelial Cells - UA 0-5 SEEN /hpf (5-10); White Blood Cells 5-10 SEEN /hpf (0-5)
[2018-05-30 04:21] LABS: Bacteria RARE /hpf (None Seen); Red Blood Cells-Urine 10-25 SEEN /hpf (0-5)
[2018-05-30] MEDS: Mag Hydrox/Al Hydrox/Simeth 30 ML UDC PO (04:23)
[2018-05-30 04:26] LABS: ALB/GLOB Ratio 0.7 RATIO (0.9-2.4); AST(SGOT) 58 U/L (15-37); Alanine Aminotransfer ALT/SGPT 38 U/L (13-56); Albumin, Serum 3.2 g/dL (3.2-5.0); Alkaline Phosphatase 143 U/L (45-117); Anion Gap 9 (5-15); BUN 17 mg/dL (7-18); BUN/Creat Ratio 19.3 RATIO (10-20); Calcium,Total 9.1 mg/dL (8.5-10.1); Chloride 104 mmol/L (98-107); Creatinine, Serum 0.88 mg/dL (0.55-1.02); EST Glomerular Filtration Rate 86 mL/min (>60); Est Glom Filt Rate - Afr Amer 104 mL/min (>60); Estimated Creatinine Clearance 87.32 ml/min; Globulin 4.7 g/dL (2.2-4.2); Glucose 128 mg/dL (74-106); Lipase 182 U/L (73-393); Potassium 4.1 mmol/L (3.5-5.1); Protein, Total 7.9 g/dL (6.4-8.2); Sodium Level 140 mmol/L (136-145)
[2018-05-30] MEDS: Ketorolac 30 MG/ML Syringe IV (04:49)
[2018-05-30] MEDS: Morphine 4 MG/ML Syringe IV (06:15)
[2018-05-30 06:37] VITALS: BP 114/65; PULSE 70; RESP 16; O2SAT 97
== END 2018-05-30 06:37 | disposition home or self-care (01) ==
PROVIDERS: Emergency Provider Emergency Medicine; Family Provider Nurse Practitioner Family; PCP Nurse Practitioner Family
DX: R10.12 Left upper quadrant pain (principal); R10.11 Right upper quadrant pain; R11.2 Nausea with vomiting, unspecified; R74.8 Abnormal levels of other serum enzymes; E66.9 Obesity, unspecified; Z79.3 Long term (current) use of hormonal contraceptives; Z79.899 Other long term (current) drug therapy
CPT/HCPCS: 80053; 81001; 81025; 83690; 85025; 87086; 87088; 96374; 96375; 99285; A4216; J2405

== ENCOUNTER → 2018-06-19 08:34 | Outpatient (CLI) | payer MEDICAID, SELFPAY ==
--- NOTE | 2018-06-19 08:39 | US_ITS ---
STUDY: ABDOMINAL ULTRASOUND - RIGHT UPPER QUADRANT REASON FOR VISIT: Female, 23 years old. Right upper quadrant pain. TECHNIQUE: Ultrasound evaluation of the right upper quadrant was performed with real-time and static hernandez-scale imaging. TECHNICAL QUALITY: Adequate. COMPARISON: None. FINDINGS: Liver: The liver measures 19.3 cm. There is increased echogenicity consistent with fatty infiltration. The bile ducts are within normal limits. There is hepatic color flow. The direction of portal flow is hepatopetal. There is no demonstrated mass lesion. Gallbladder: Normal distended gallbladder. The gallbladder wall measures 2.8 mm. There is a negative sonographic Miranda's sign. There is no pericholecystic fluid. There is biliary sludge dependent within the gallbladder. There are multiple tiny stones. Common Bile Duct (C.B.D.): The common bile duct measures 3.4 mm. Pancreas: Normal size of the head, body and tail of the pancreas. There is normal echogenicity of the pancreas. There is no demonstrated pancreatic mass or cyst. Right Kidney: Normal size of the right kidney. The right kidney measures 11.4 cm. Normal renal cortex. The right cortex measures 1.7 cm. There is no demonstrated renal mass or cyst. There is no right hydronephrosis. US/Gallbladder IMPRESSION: Cholelithiasis. Fatty liver and hepatomegaly. Electronically Signed: Kurt Manjarrez MD at 23:52 EDT , Service support ,
== END ==
PROVIDERS: Family Provider Nurse Practitioner Family; PCP Nurse Practitioner Family; Referring Provider Nurse Practitioner Family; Visit Provider Nurse Practitioner Family
DX: R10.11 Right upper quadrant pain (principal)
CPT/HCPCS: 76705

== ENCOUNTER 2018-07-13 07:44 | Day surgery (SDC) | payer MEDICAID, SELFPAY ==
[2018-07-13] VITALS (7 sets, daily range): BP systolic 128–149; BP diastolic 75–99; PULSE 80–101; RESP 16; TEMP 36.1–37; O2SAT 93–99; BMI 45.6
--- NOTE | 2018-07-13 | GALL_PTH ---
PATIENT: SAFIA AARON [place] [facility] [id number] AGE/SX: 23/F ROOM: RE07/13/[address]: Dr. Danilo Islas MD : [id number] BED: DIS: 07/13/2018 SPEC #: [id number] RECD: 07/13/18 14:42 STATUS: KATE RENEE #: [id number] GURPREET: 07/13/18 00:[address]: Danilo Islas DEPT: SURGICAL PATHOLOGY RECD BY: Kemal Arana ENTERED: 07/13/18 14:42 SP TYPE: ARCHIE VALENTIN DR: Holly Boone, CURTAIN STRETCHER ASSEMBLER-C Tissues: Gallbladder, NOS Procedures: Surgery Specimen Level III HEADER OPERATION: Laparoscopic cholecystomy PRE-OP DIAGNOSIS: Calculus of gallbladder with acute on chronic cholecystitis without obstruction TISSUE SUBMITTED: Gallbladder MICROSCOPIC DIAGNOSIS Gallbladder, cholecystectomy: Chronic cholecystitis and cholelithiasis. Benign pericystic lymph node. AM:nic 07/16/18 MICROSCOPIC DESCRIPTION Slides are reviewed. GROSS DESCRIPTION Received is one container labeled with the patient's name and designated gallbladder. The specimen consists of a gallbladder measuring 11 cm in length and up to 4 cm in diameter. The external surface is pink-levi, smooth and glistening for the most part. Focally it is granular, hemorrhagic and contains cautery artifact. The gallbladder contains green-yellow mucoid bile and multiple green-yellow stones measuring in aggregate 1 x 1 x 0.2 cm and 0.1 to 0.2 cm in greatest dimension. The mucosa is bile-stained and without any mass lesions. The gallbladder wall measures up to 0.2 cm in thickness. Mixer Operator Tablets sections from the gallbladder and the cystic duct are submitted in one cassette. / SJ:nic 07/13/18 TC:3 CPT: 82316
[2018-07-13 08:04] LABS: Internal QC Validated? YES +Cl - CLEAR BKGD; Pregnancy, Urine Negative Negative
--- NOTE | 2018-07-13 08:10 | EKG12_ITS ---
Test Reason : PRE-OP Blood Pressure : / mmHG Vent. Rate : 070 BPM Atrial Rate : 070 BPM P-R Int : 146 ms QRS Dur : 076 ms QT Int : 394 ms P-R-T Axes : 032 014 023 degrees QTc Int : 425 ms Normal sinus rhythm Normal ECG When compared with ECG of 22-JUN-2012 01:37, PREVIOUS ECG IS PRESENT Confirmed by SCOTT LOPEZ, LAUREANO ([id number]), publication editor KIRILL TATE ([id number]) on 07/20/2018 2:31:04 PM Referred By: Danilo Islas Confirmed By:LAUREANO CHAVEZ MD
[2018-07-13] MEDS: Cefazolin 2 GM in 0.9% Normal Saline 100 ML IV (10:00)
--- NOTE | 2018-07-13 10:17 | OP.PCM_ITS ---
Problem List (1) Calculus of gallbladder with acute on chronic cholecystitis without obstruction Status: Chronic Report of Operation Date of Procedure: 07/13/18 Pre-Operative Diagnosis: k80.12 acute on chronic cholecystitis with cholelithiasis Post-Operative Diagnosis: Same Surgery/Procedure Performed:: Laparoscopic cholecystectomy Type of Anesthesia:: General Anesthesiologist: Tom Harding Specimen's removed: Gallbladder Estimated Blood Loss (mL): < 25 cc Fluids Replaced: 1 liter LR Description of Procedure: Patient was brought into the operating room. Placed in the supine position. Under excellent general endotracheal sedation the abdomen was sterilely prepped and draped in the usual fashion. Local was injected infraumbilically. Incision was made and dissection was carried down to the fascia. The fascia was grasped with a Nadya. Varies needle was placed inside the abdomen and the abdomen was insufflated to 15 torr. A 10/12 trocar was placed. Patient was placed in the head up and rotated to the left position. A subxiphoid #5 trocar was placed, inferior to this another #5 trocar was placed, laterally a #5 trocar was placed. All of these under direct visualization without injury to underlying structures. Fundus of the gallbladder was grasped and retracted in a cephalad direction. Infundibulum was grasped retracted laterally. I dissected out the cystic duct place a Hemoclip proximally and distally and ligated the duct. Identified the cystic artery placed hemoclips proximally distally and ligated the artery. I deliver the gallbladder from the gallbladder bed with use of electrocautery. In doing this identified the posterior branch of the cystic artery. I placed hemoclips proximally and distally on it. I deliver the gallbladder completely from the gallbladder bed with use of electrocautery. There was no spillage of bile or stones. I placed the specimen specimen bag and delivered through the umbilical port without difficulty. I irrigated the right upper quadrant good hemostasis was noted I placed an extra clip on the cystic artery. Irrigation and aspiration of the fluid revealed that the liver bed was clean without signs of bleeding. I removed the trochars under direct visualization good hemostasis was noted. I closed the fascia the umbilical port with a [id number] stitch of 0 Vicryl. Skin incisions were closed with subcuticular stitches of 4-0 Monocryl. Steri-Strips are applied. Sterile denilson ssings were applied. The patient tolerated the procedure well. - Admit VTE Documentation VTE Present on Admission: No VTE Mechan Device Prophylaxis: SCD's VTE Pharm Prophylaxis ordered?: No Reason prophylaxis not ordered:: Treatment Not Indicated
--- NOTE | 2018-07-13 10:18 | DCINST_ITS ---
Discharge Diet: Light diet - advance as tolerated Discharge Activity: May Not Drive - for 2-3 days or while taking narcotic pain medications., - - Do not drive, work heavy equipment or sign legal documents for 24 hours. May shower in (days): 1 - with the bandage in place. Additional Activity Instructions:: Pain medication may cause nausea. You should typically eat light foods as you take your pain medications. Pain medication may also cause constipation. If this is a problem for you, please discuss with your doctor. Call your doctor if your incision/area has: Continuous Slow Oozing, Sudden Increased Bleeding, Increased Pain/ Swelling, Increased Redness, Foul Smelling Discharge Call your doctor if you observe: Fever of 101 or Higher Suture Line Care: Avoid Pulling/Pushing, Avoid Pinching/Bending Additional Dressing/Incision Instructions:: Leave operative bandaids on for 2 days. When you remove dressing, leave Steri-Strips on until your follow-up appointment, or until the Steri-Strips fall off on their own. Allergies/Adverse Reactions: Allergies No Known Allergies Allergy (Verified 07/10/18 13:58) Medications to take at Discharge hydrOXYzine pamoate capsule [Vistaril pamoate capsule] 25 mg PO TID PRN PRN 03/16/18 sertraline 25 mg tablet 25 mg PO DAILY 06/29/18 Ibuprofen 800 mg PO PRN PRN 07/10/18 Oxycodone HCl/Acetaminophen [Percocet 5/325] 1 - 2 tab PO Q4H PRN PRN 5 Days #30 tab 07/13/18 The following prescriptions were given: Oxycodone HCl/Acetaminophen [Percocet 5/325] 1 - 2 tab PO Q4H PRN PRN 5 Days #30 tab PRN Reason: Pain Orders to be completed after discharge: 12 Lead EKG [[facility]] Time Frame: 07/13/18, Location: None Selected Primary Care Physician: Holly Boone NP-C [Primary Care Provider] - Test Results: Test results from this visit will be discussed in further detail at your follow- up appointment, if applicable. Please Follow Up With: Danilo Islas MD - Please call [phone] to schedule an appointment. When: 7 days after your surgery.
[2018-07-13] MEDS: Bupivacaine Mpf 0.5% 30 ML VIAL (10:50)
== END 2018-07-13 14:15 | disposition home or self-care (01) ==
LOC: SDC 07:45 → AC 07:46
PROVIDERS: Anesthesiology; Family Provider Nurse Practitioner Family; PCP Nurse Practitioner Family; Referring Provider Surgery; Visit Provider Surgery
PROC: (CPT 47562; principal; 2018-07-13 09:40)
DX: K80.12 Calculus of gallbladder with acute and chronic cholecystitis without obstruction (principal); F32.9 Major depressive disorder, single episode, unspecified; F41.9 Anxiety disorder, unspecified; Z79.3 Long term (current) use of hormonal contraceptives; Z79.899 Other long term (current) drug therapy
CPT/HCPCS: 47562; 81025; 88304; 93005; J7120; J2405

== ENCOUNTER 2021-06-13 20:09 | Emergency (ER) | payer MEDICAID, SELFPAY ==
[2021-06-13 20:10] VITALS: BP 166/93; PULSE 92; RESP 18; TEMP 36.8; O2SAT 99; BMI 44.6
[2021-06-13 20:12] VITALS: BP 166/93; PULSE 92; RESP 18; TEMP 36.8; O2SAT 99
--- NOTE | 2021-06-13 20:50 | EDS_ITS ---
HPI History of Present Illness Chief Complaint: Dental Informant: patient Narrative Narrative: Increasing right lower dental pain since yesterday evening. States has a broken tooth there for a while. No fevers. Denies hot cold sensitivities.'s first time she has had the symptoms. Took Tylenol 3 hours ago with no relief. She states she has a fear of dentists last time seen 2017. She is G2, P1 8 weeks gestation by dates currently. Denies urinary symptoms or vaginal symptoms. She has appointment with Dr. Aparicio this week. She does not have a dentist. Prior similar symptoms: No PFSH PFSH Medical History Abdominal pain Cholelithiasis Depression with anxiety Diarrhea Nausea Home Medications penicillin V potassium 500 mg PO 4X/DAY #40 tab 06/13/21 [Rx Last Taken Unknown] Allergy/AdvReac Type Severity Reaction Status Date / Time No Known Allergies Allergy Verified 06/13/21 20:12 Family History Grandfather Arthritis Hypertension High cholesterol Diabetes Father Diabetes High cholesterol Hypertension Thyroid disorder Surgical History Excision tumor behind right ear S/P laparoscopic cholecystectomy Social History Smoking Status: Never smoker alcohol intake: never substance use type: does not use ROS ROS ED Constitutional Constitutional ED: Denies chills, fever(s) or sweats Eyes Eyes: Denies change in vision ENT ENT ED: Reports other Details: Dental pain ; Denies dysphagia or sore throat Cardiovascular Cardiovascular: Denies chest pain, leg edema, palpitations or racing heartbeat Respiratory/Chest Respiratory/Chest: Denies cough, dyspnea or dyspnea on exertion Gastrointestinal Gastrointestinal: Denies abdominal pain, diarrhea, nausea or vomiting Genitourinary Genitourinary ED: Denies dysuria, hematuria or urinary frequency Musculoskeletal Musculoskeletal: Denies back pain, extremity pain or neck pain Integumentary Denies rash or wounds Neurologic Neurologic: Denies headache(s), paresthesias or weakness EXAM Physical Exam Const Vital Signs: 06/13/21 20:10 06/13/21 20:12 Temperature 98.3 F 98.3 F Temperature Source Temporal Temporal Pulse Rate 92 92 Respiratory Rate 18 18 Blood Pressure 166/93 H 166/93 H Blood Pressure Mean 117 117 Pulse Ox 99 99 Positive well nourished and well developed General Appearance ED: well developed and NAD HEENT Reports moist mucous membranes HEENT Narrative: Focal decay tooth down to the gumline tooth #19. No focal abscess no sublingual edema. Diffuse dental caries upper teeth across the bases. No gingival swelling. Airway patent. normocephalic and atraumatic Eyes PERRL, EOMs intact bilaterally and conjunctivae normal General Eye ED: Yes normal appearance of both eyes Neck no lymphadenopathy and supple General: Negative for tenderness Chest Wall Chest: Negative for tenderness Resp normal respiratory effort and normal air movement Effort and Inspection: symmetric chest movement; Negative for respiratory distress Cardio regular rate, regular rhythm and no murmurs Peripheral Pulses: pulses 2+ throughout GI normal to inspection, nondistended, normoactive bowel sounds and non-tender Palpation: Negative for guarding or rebound tenderness present Back/Spine no CVA tenderness and no thoracic nor lumbar tenderness Extremity normal to inspection General Extremety ED: Negative for edema or tenderness General Extremity: Negative for edema Neuro oriented x3 and no sensory deficits noted Sensorium / Orientation: awake and alert Skin no rashes or lesions noted and no wounds MDM MDM MDM Narrative Medical decision making narrative: Patient vital signs stable nontoxic. Focal dental decay with pain. Will start penicillin. She is in first trimester . She has upcoming OB appointment. She will continue Tylenol her topical pain ointment. Prescription her penicillin sent to her pharmacy. She is given dental list for follow-up for definitive treatment. All questions were answered. Discharge Plan Triage Chief Complaint: Dental ED Provider: Mckay Felipe Dx/Rx/DC Orders Clinical Impression: Dental caries, Dentalgia, First trimester Instructions: Your First Trimester ..., ED Dental Cavity Prescriptions: New penicillin V potassium 500 MG tablet 500 mg PO 4X/DAY Qty: 40 RF: 0 Primary Care Provider: Holly Boone NP Referrals: Holly Boone NP, EXECUTIVE OFFICE MANAGER-C [Primary Care Provider] - Activity Restrictions/Additional Instructions: Continue Tylenol 1 g every 6 hours. Usual topical pain medicines. Need to follow-up with dentist for definitive treatment. Follow-up with your MANUFACTURING MILLWRIGHT for your scheduled visit. Disposition Disposition: Home, Self Care Discharge Date/Time: 06/13/21 21:02
[2021-06-13] MEDS: Penicillin Vk 250 MG Tablet 500 MG PO (20:59)
== END 2021-06-13 21:02 | disposition home or self-care (01) ==
PROVIDERS: Emergency Provider Emergency Medicine; PCP Nurse Practitioner Family
DX: O99.611 Diseases of the digestive system complicating pregnancy, first trimester (principal); K02.9 Dental caries, unspecified; Z3A.08 8 weeks gestation of pregnancy
CPT/HCPCS: 99283

== ENCOUNTER 2022-01-17 02:10 | Inpatient (IN) | payer MEDICAID, SELFPAY ==
[2022-01-17] VITALS (44 sets, daily range): BP systolic 98–140; BP diastolic 56–87; PULSE 59–80; RESP 16–18; TEMP 36.1–37.1; O2SAT 84–100; BMI 44.4
[2022-01-17 03:01] LABS: Bedside Glucose 97 mg/dL (74-106)
[2022-01-17] MEDS: 0.9% Saline Lock 10 ML Syringe IV (03:25)
[2022-01-17 03:39] LABS: Absolute Lymphocyte Count 3.26 X10^3/uL (0.83-4.51); Absolute Neutrophil Count 8.6 X10^3/uL (2.0-7.7); Basophil# 0.02 X10^3/uL; Basophil% 0.2 % (0-1); Eosinophil# 0.12 X10^3/uL; Eosinophils% 0.9 % (0-5); Hematocrit 35.9 % (37-47); Hemoglobin 12.3 g/dL (12.0-15.0); Lymphocyte # 3.26 X10^3/ul (0.83-4.51); Lymphocyte % 25.3 % (19-41); Mean Corp Hgb Conc 34.3 g/dL (32-36); Mean Corpuscular Hgb 28.5 pg (27.0-32.0); Mean Corpuscular Volume 83.3 fL (81-99); Mean Platelet Vol. 10.6 fl (6.2-12.0); Monocyte# 0.87 X10^3/uL; Monocyte% 6.7 % (0-10); NRBC Flagged by Analyzer 0 % (0-5); Neutrophil # 8.56 X10^3/uL (2.7-7.7); Neutrophil % 66.4 % (47-70); Platelet Count 257 K/mm3 (150-450); RBC Distribution Width CV 14.2 % (11.6-14.6); RBC Distribution Width SD 43.4 fl (35.1-43.9); Red Blood Count 4.31 M/mm3 (4.2-5.4); White Blood Count 12.9 K/mm3 (4.4-11.0)
[2022-01-17 04:01] LABS: Bedside Glucose 83 mg/dL (74-106)
[2022-01-17] MEDS: Lactated Ringers 1,000 ML 50 ML IV (06:21)
[2022-01-17] MEDS: Oxytocin 30 units/NS 500 ml 30 UNITS/500 ML IV.SOLN IV (06:22)
[2022-01-17 07:56] LABS: Bedside Glucose 88 mg/dL (74-106)
[2022-01-17] MEDS: Lactated Ringers 500 ML 999 ML IV (08:47)
[2022-01-17] MEDS: fentaNYL-bupivacaine (epidural) 100 ML BAG EPIDURAL (09:44)
[2022-01-17 11:00] LABS: Bedside Glucose 88 mg/dL (74-106)
[2022-01-17] MEDS: Oxytocin 30 units/NS 500 ml 30 UNITS/500 ML IV.SOLN 334 UNITS IV (11:44)
--- NOTE | 2022-01-17 12:13 | EX.PCM.OBRPT ---
Assessment & Plan (1) BMI 40.0-44.9, adult: (2) Maternal obesity syndrome in third trimester: (3) Gestational diabetes requiring insulin: (4) Meconium in amniotic fluid: (5) 39 weeks gestation of : (6) (spontaneous vaginal delivery): Maternal Data Information Final SANDEEP: 01/24/22 Final SANDEEP Source: [place] <20 weeks Gestational age: 39 0/7 Vaginal Delivery Maternal Presentation Maternal Presentation: Medically Indicated Induction Type of Induction: Pitocin and Amniotomy Medical Reason for Induction: - (gest dm on insulin) Operative Information Date of Procedure: 01/17/22 Pre-Operative Diagnosis: labor Post-Operative Diagnosis: same Surgery / Procedure Performed: Spontaneous Vaginal Delivery Type of Anesthesia: Epidural and Local with 1% Lidocaine (10cc) Special Medications: none Drain: - (none) Estimated Blood Loss: 400 Time of Delivery: 11:40 Findings Description of Procedure: A vigorous female was delivered ABISAI over a second-degree perineal laceration. A loose nuchal cord ?1 was easily reduced. The remainder the was delivered with maternal pushing and gentle traction only in less than 15 seconds. The Pitocin infusion was initiated for active management of the third stage. The cord was clamped and cut after 1 minute. The was attended to by the waiting nursing staff. The placenta was delivered spontaneously and intact. The cervix and vagina were intact. The second-degree perineal laceration was repaired with 3-0 Vicryl suture in a running standard fashion. Sponge and needle counts were correct. A vaginal sweep was completed by me. Presentation: ABISAI Amniotic Fluid Description: Moderate meconium Placental Delivery Description: Spontaneous Placenta Disposition: [facility] Cord Vessel Description: 3 Vessels Cord Entanglement: Around neck x 1, loose Nuchal Cord Compression: Without compression Infant A Gender: Female (1 minute): 8 (5 minute): 9 Delayed Cord Clamping: Yes Post Vaginal Delivery Medications Given After Delivery: IV Pitocin Laceration: 2nd degree Complication Complications: None
--- NOTE | 2022-01-17 12:16 | PCM.HP.OB ---
HPI - General General Date of Admission: 01/17/22 HPI Narrative SFAIA AARON, is a 26-year-old 2 para 1-0-0-1 who presents with EDC of 01/24/2022 at 39 weeks for induction of labor due to gestational diabetes on insulin. She has had gestational diabetes has been well controlled. She denied any vaginal bleeding or leaking of fluid. She actually started jesús and had significant contractions overnight. Her is complicated to date by maternal obesity, history of of depression in the past. She also had polyhydramnios. Maternal Data Information Final SANDEEP: 01/24/22 Gestational age: 41 PFSH PFS Medical History (Updated 01/17/22 @ 12:[address] Leona Watts MD) Abdominal pain Cholelithiasis Depression with anxiety Diarrhea Gestational diabetes Nausea Polyhydramnios depression hemorrhage Thyroid disorder Home Medications acetaminophen [Tylenol] 325 mg PO Q6H PRN 01/17/22 [History Last Taken 01/17/22 00:30] aspirin 81 mg PO DAILY 01/17/22 [History Last Taken 01/16/22 22:00] insulin NPH isoph U-100 human [Humulin N Pen] 12 unit SUBCUT DAILY 01/17/22 [History Last Taken 01/16/22 09:00] insulin NPH isoph U-100 human [Humulin N Pen] 24 unit SUBCUT DAILY 01/17/22 [History Last Taken 01/16/22 22:00] Allergy/AdvReac Type Severity Reaction Status Date / Time No Known Allergies Allergy Verified 01/17/22 02:37 Family History Grandfather Arthritis Hypertension High cholesterol Diabetes Father Diabetes High cholesterol Hypertension Thyroid disorder Surgical History Excision tumor behind right ear S/P laparoscopic cholecystectomy Social History Smoking Status: Never smoker alcohol intake: never substance use type: does not use History Elective abortions Hx Para 1 Spontaneous abortions Hx # Term Pregnancies Ectopic pregnancies Hx # Pregnancies Multiple births # of living children ROS Constitutional Constitutional: Denies fatigue, fever(s) or malaise Eyes Eyes: Denies change in vision ENT HEENT: Denies dizziness or headache(s) Cardiovascular Cardiovascular: Denies chest pain, dyspnea or lightheadedness Respiratory/Chest Respiratory/Chest: Denies cough or dyspnea Gastrointestinal Gastrointestinal: Denies change in bowel habits Genitourinary Genitourinary: Denies burning urination or genital lesions Integumentary Integumentary: Denies rash Neurologic Neurologic: Denies confusion, dizziness, headache(s), numbness or weakness Vital Signs Vital Signs Vital Signs: 01/17/22 02:28 01/17/22 05:09 01/17/22 05:10 Temperature 97.5 F L 97.8 F Temperature Source Temporal Temporal Pulse Rate 75 72 80 Blood Pressure 124/76 H 121/75 H BP Systolic 124 121 BP Diastolic 76 75 Pulse Ox 96 96 01/17/22 06:30 01/17/22 07:39 01/17/22 07:40 Temperature 97.0 F L 97.3 F L Temperature Source Temporal Temporal Pulse Rate 77 62 Blood Pressure 121/76 H 127/73 H BP Systolic 121 127 BP Diastolic 76 73 Pulse Ox 96 98 01/17/22 08:38 01/17/22 08:39 01/17/22 09:25 Temperature 97.5 F L Temperature Source Temporal Pulse Rate 65 67 Blood Pressure 133/83 H BP Systolic 133 BP Diastolic 83 Pulse Ox 98 99 01/17/22 09:30 01/17/22 09:31 01/17/22 09:35 Temperature Temperature Source Pulse Rate 68 Blood Pressure 124/79 H BP Systolic 124 BP Diastolic 79 Pulse Ox 99 100 01/17/22 09:36 01/17/22 09:40 01/17/22 09:41 Temperature Temperature Source Pulse Rate 80 71 Blood Pressure 129/70 H 119/67 BP Systolic 129 119 BP Diastolic 70 67 Pulse Ox 97 01/17/22 09:45 01/17/22 09:46 01/17/22 09:50 Temperature 97.8 F Temperature Source Temporal Pulse Rate 70 Blood Pressure 122/60 H BP Systolic 122 BP Diastolic 60 Pulse Ox 98 99 01/17/22 09:51 01/17/22 09:55 01/17/22 09:56 Temperature Temperature Source Pulse Rate 64 61 Blood Pressure 117/63 117/67 BP Systolic 117 117 BP Diastolic 63 67 Pulse Ox 99 01/17/22 09:59 01/17/22 10:00 01/17/22 10:05 Temperature Temperature Source Pulse Rate 65 65 63 Blood Pressure 117/70 127/73 H BP Systolic 117 127 BP Diastolic 70 73 Pulse Ox 93 98 99 01/17/22 10:06 01/17/22 10:10 01/17/22 10:15 Temperature Temperature Source Pulse Rate 69 60 59 L Blood Pressure 121/69 H 122/72 H BP Systolic 121 122 BP Diastolic 69 72 Pulse Ox 93 98 99 01/17/22 10:20 01/17/22 10:25 01/17/22 10:46 Temperature Temperature Source Pulse Rate 67 65 67 Blood Pressure 129/83 H 128/80 H 124/67 H BP Systolic 129 128 124 BP Diastolic 83 80 67 Pulse Ox 92 86 01/17/22 10:48 01/17/22 11:59 01/17/22 12:00 Temperature 97.2 F L 97.0 F L Temperature Source Temporal Temporal Pulse Rate 69 Blood Pressure 140/87 H BP Systolic 140 BP Diastolic 87 Pulse Ox Weight Weight: 125 kg Body Mass Index (BMI) 44.4 Physical Exam Const alert and no apparent distress General Appearance: cooperative HEENT normocephalic Resp normal respiratory effort Cardio regular rate GI soft to palpation GI Narrative: gravid, nontender, appropriate for gestational age Extremity no calf tenderness General Extremity: edema Skin no wounds Rashes: No rashes noted Psych activity/motor behavior normal Labs Labs Labs: Blood Type O POSITIVE Antibody Screen NEGATIVE Hct 35.9 % (37-47) L Hgb 12.3 g/dL (12.0-15.0) Rhogam given: No Assessment & Plan (1) BMI 40.0-44.9, adult: (2) Maternal obesity syndrome in third trimester: (3) Gestational diabetes requiring insulin: (4) Meconium in amniotic fluid: (5) 39 weeks gestation of : PLAN: Risk benefits and alternatives to induction labor him discussed with patient her questions were answered to her satisfaction she desired to proceed. Patient was actually admitted in early prodromal labor. Labor was augmented with Pitocin and artificial rupture membranes. Patient may have epidural, nitrous oxide or pain medication as needed. Estimated weight is less than 4500 g and pelvis clinically adequate to expect vaginal delivery. (6) (spontaneous vaginal delivery):
[2022-01-17 12:41] LABS: Bedside Glucose 118 mg/dL (74-106)
[2022-01-17] MEDS: Acetaminophen 500 MG Tablet 1000 MG PO (13:06)
[2022-01-17] MEDS: Ibuprofen 600 MG Tablet PO (16:54)
[2022-01-18] MEDS: Acetaminophen 500 MG Tablet 1000 MG PO ×3 (00:28→16:39)
[2022-01-18 03:18] VITALS: BP 107/62; PULSE 72; RESP 14; TEMP 37.1; O2SAT 95
[2022-01-18 05:56] LABS: Bedside Glucose 91 mg/dL (74-106)
[2022-01-18 06:01] LABS: Hematocrit 33.7 % (37-47); Hemoglobin 11.2 g/dL (12.0-15.0); Mean Corp Hgb Conc 33.2 g/dL (32-36); Mean Corpuscular Hgb 28.1 pg (27.0-32.0); Mean Corpuscular Volume 84.7 fL (81-99); Mean Platelet Vol. 10.5 fl (6.2-12.0); Platelet Count 208 K/mm3 (150-450); RBC Distribution Width CV 14.6 % (11.6-14.6); RBC Distribution Width SD 44.6 fl (35.1-43.9); Red Blood Count 3.98 M/mm3 (4.2-5.4); White Blood Count 12.2 K/mm3 (4.4-11.0)
[2022-01-18 08:27] VITALS: BP 122/78; PULSE 75; RESP 16; O2SAT 98
[2022-01-18 12:24] VITALS: BP 103/68; PULSE 68; RESP 16; O2SAT 99
--- NOTE | 2022-01-18 12:24 | PCM.PN.OB ---
Subjective Subjective Denies complaints Objective Data Objective Data Vital Signs: Vital Signs Temp Pulse Resp BP Pulse Ox 98.7 F 75 16 122/78 H 98 01/18/22 03:18 01/18/22 08:27 01/18/22 08:27 01/18/22 08:27 01/18/22 08:27 Oxygen Delivery Method Room Air Weight: 275 lb 9.245 oz Body Mass Index (BMI) 44.4 Intake & Output: Intake and Output for Last 24 Hours 01/16/22 01/17/22 01/18/22 23:59 23:59 23:59 Intake Total 1633.97 / 1633.97 Output Total 1600 / 1600 Balance 33.97 / 33.97 Lab / Micro Data Result Diagrams: 01/18/22 05:50 Labs: Laboratory Results - last 24 hr 01/17/22 12:34: POC Glucose 118 H 01/18/22 05:47: POC Glucose 91 01/18/22 05:50: WBC 12.2 H, RBC 3.98 L, Hgb 11.2 L, Hct 33.7 L, MCV 84.7, MCH 28.1, MCHC 33.2, RDW Std Deviation 44.6 H, RDW Coeff of Hema 14.6, Plt Count 208, MPV 10.5 Micro: Microbiology 01/17/22 03:25 Nasal Secretion SARS-CoV-2 Antigen (Rapid) - Final Physical Exam Const alert, oriented x3 and no apparent distress HEENT normocephalic GI soft to palpation, non-tender and non-distended GI Narrative: fundus firm, mid & below umbilicus Extremity normal to inspection and no calf tenderness Assessment & Plan (1) Gestational diabetes requiring insulin: PLAN: FBS this am normal Plan for PP DM screening (2) (spontaneous vaginal delivery): COMMENT: PPD#1 PLAN: Routine care
[2022-01-18 16:44] VITALS: BP 121/62; RESP 16; TEMP 36.8; O2SAT 98
[2022-01-18 20:28] VITALS: BP 129/64; PULSE 65; RESP 16; TEMP 36.5
[2022-01-18] MEDS: Ibuprofen 600 MG Tablet PO (21:35)
[2022-01-19 03:25] VITALS: BP 125/72; PULSE 71; RESP 16; TEMP 36.5
[2022-01-19] MEDS: Acetaminophen 500 MG Tablet 1000 MG PO ×2 (03:34→10:26)
--- NOTE | 2022-01-19 07:44 | PCM.PN.OB ---
Subjective Subjective Is doing well this morning. Pain is well controlled. She is ambulating voiding without difficulty. Tolerating regular diet. She denies chest pain, lightheadedness, dizziness, shortness of breath, palpitations, leg pain. Lochia is normal. She desires discharge today. Objective Data Objective Data Vital Signs: Vital Signs Temp Pulse Resp BP Pulse Ox 97.7 F L 71 16 125/72 H 98 01/19/22 03:25 01/19/22 03:25 01/19/22 03:25 01/19/22 03:25 01/18/22 16:44 Oxygen Delivery Method Room Air Weight: 275 lb 9.245 oz Body Mass Index (BMI) 44.4 Intake & Output: Intake and Output for Last 24 Hours 01/17/22 01/18/22 01/19/22 23:59 23:59 23:59 Intake Total 1633.97 / 1633.97 Output Total 1600 / 1600 Balance 33.97 / 33.97 Lab / Micro Data Result Diagrams: 01/18/22 05:50 Micro: Microbiology 01/17/22 03:25 Nasal Secretion SARS-CoV-2 Antigen (Rapid) - Final Physical Exam Const alert and no apparent distress General Appearance: comfortable Resp normal respiratory effort GI non-distended Extremity no calf tenderness Assessment & Plan (1) (spontaneous vaginal delivery): COMMENT: PPD#2 PLAN: Is doing well. Desires discharge today. Meeting milestones to go home. Discharge instructions reviewed.
--- NOTE | 2022-01-19 07:47 | DCINST_ITS ---
Discharge Instructions Diet Discharge Diet: No restrictions Activity Discharge Activity: May Shower May resume sexual activity in: 6 weeks Ice area for (Minutes): 15 Weight Bearing Status: Weight bearing as tolerated Lifting Restrictions: nothing heavier than baby Dressing / Incision Call your doctor if you observe: Fever of 101 or Higher, Coldness, Increased Pain, Numbness or Tingling, Change in Color, Inability to urinate, Inability to have a bowel movement, Using more than 1 pad per hour, Shortness of breath, Dizziness, Fainting spells, Swelling in the ankles, Chest pain, Increased palpitations (irregular heartbeat), Calf discomfort and Uncontrolled pain Follow Up Care When: 1-2 weeks if you desire to early - can be virtual 6 week visit Test Results: Test results from this visit will be discussed in further detail at your follow-up appointment, if applicable. Discharge Plan Admission Admit Date/Time: 01/17/22 02:10 Primary Reason for Your Visit: delivery Attending Provider: Leona Watts Primary Care Provider: Holly Boone NP Discharge Orders/Prescriptions Prescriptions: New ibuprofen 600 mg tablet 600 mg PO Q6H PRN (Reason: pain) Qty: 30 RF: 0 Continued acetaminophen [Tylenol] 325 mg Capsule 325 mg PO Q6H PRN (Reason: Pain) RF: 0 Discontinued aspirin 81 mg Tablet 81 mg PO DAILY RF: 0 Humulin N Pen 100 unit/mL (3 mL) Insulin Pen 12 unit SUBCUT DAILY RF: 0 Humulin N Pen 100 unit/mL (3 mL) Insulin Pen 24 unit SUBCUT DAILY RF: 0 Referrals / Follow Up: Holly Boone NP, PHOTOGRAPHY COORDINATOR-C [Primary Care Provider] - Disposition Disposition (needs filled in before D/C Order can be placed): Home, Self Care
[2022-01-19 09:30] VITALS: BP 123/75; PULSE 76; RESP 18
--- NOTE | 2022-01-19 13:50 | CASEMGMT ---
Social Work Brief Assessment Labor and Delivery Unit Patient Address: [address], [place] [address] Phone number: [phone] Date of Referral/Notification: 01/17/2022 Time of Referral: 1926 Referred By: Dr. Leona Watts Date of Intervention: 01/19/2022 Time of Intervention: 1350 Reason for Referral: Maternal history of depression, anxiety, and depression. Informant: Medical record and mother of baby (MOB) Kimberlee Espinosa History: MOB is a 26-year-old single female, involved with the father of baby (FOB) Robby Sandoval ([id number]) since about 2014. MOB and FOB now have 2 children together: Roland (born February 2018) and baby girl Kasey (born 01/17/2022). ARON is 2, para 1 now 2 after delivering camber. care adequate. Kasey delivered weighing 7 pounds 12 ounces. Apgars 8 and 9. Record indicates MOB with history of gestational diabetes. MOB is not currently working outside of the home although FOB is employed full-time. MOB has high school education and no reported concerns with reading, writing, or learning comprehension. MOB reports involvement with job and family services and [facility]. Denies any any other agency involvement and denies any history of children services involvement. MOB denies any domestic violence or intimate partner violence issues with the FOB. FOB does have a history of depression related to past childhood trauma. MOB has a history of depression and anxiety in high school, as well as depression after Roland was born. MOB reports mostly depression and had periods of time of not wanting to wake up in the timeframe; denied any active suicidal planning, intent or attempts. [place] depression screen completed during this assessment with a score of 2, which is below the threshold for any depression or anxiety symptoms. MOB denies any history of substance use or abuse. Assessment: Met with MOB in room, introducing to self and social work role. MOB calm, cooperative and pleasant and willing to speak with social media manager. MOB reports to have necessary supplies to care for the including a bassinet, car seat, breast pump, clothing, diapers and wipes. MOB and FOB live together and MOB reports the home situation is also adequate. No reported concerns about ability to meet basic needs. There is one car between the 2 parents but MOB reports she can also borrow her father's car if needed. MOB describes good support from the FOB, her mother, her father and some friends. MOB reports she will have help at home going. Indicates to feel connection with this baby. MOB excepted information and education on mood and anxiety disorders, risk factors, and importance of seeking help and support should arise for the MOB again. Discussed possible interventions such as counseling and medication. MOB excepted a packet of information on mood and anxiety disorders, which does include community support information. Provided [facility] resource list which also has local options for support and counseling. Handouts on shaken baby prevention and safe sleeping also provided. No voiced concerns by nursing staff regarding parent-child interactions or bonding. Plan: MOB and will discharge home when ready. Community resource information for [facility] and information on mood and anxiety disorders provided. No further needs requested or indicated. -LENA Lemos, BLACK *This note was generated with ehealthtracker dictation software. It may contain incorrect words, spelling, and punctuation that were not noted in review of the chart prior to signing*
[2022-01-19 14:00] VITALS: BP 122/74; PULSE 71; RESP 18; TEMP 36.5
== END 2022-01-19 14:45 | disposition home or self-care (01) | DRG 560 ==
PROVIDERS: Obstetrics & Gynecology; Admitting Provider Obstetrics & Gynecology; PCP Nurse Practitioner Family; Visit Provider Obstetrics & Gynecology
DX: O24.424 Gestational diabetes mellitus in childbirth, insulin controlled (principal); Z37.0 Single live birth; O40.3XX0 Polyhydramnios, third trimester, not applicable or unspecified; Z79.82 Long term (current) use of aspirin; O70.1 Second degree perineal laceration during delivery; O99.214 Obesity complicating childbirth; O69.81X0 Labor and delivery complicated by cord around neck, without compression, not applicable or unspecified; O77.0 Labor and delivery complicated by meconium in amniotic fluid; Z3A.39 39 weeks gestation of pregnancy
CPT/HCPCS: 59025; 59050; 82962; 85025; 85027; 86850; 86900; 86901; 87426; 99218; J7120; A4216; G0378

== ENCOUNTER 2023-04-23 22:02 | Emergency (ER) | payer MEDICAID, SELFPAY ==
[2023-04-23 22:03] VITALS: BP 137/99; PULSE 93; RESP 16; TEMP 36.3; O2SAT 99; BMI 49.1
--- NOTE | 2023-04-23 22:10 | RAD_ITS ---
EXAM: XR RIGHT ELBOW COMPLETE, 3 OR MORE VIEWS CLINICAL INDICATION: INJURY TECHNIQUE: Frontal, lateral and oblique views of the right elbow. COMPARISON: No relevant prior studies available. FINDINGS: BONES/JOINTS: Unremarkable. There is no displacement of the anterior or posterior fat pads. No acute fracture. No subluxation. Normal alignment. Preservation of the joint space. No destructive or sclerotic lesions. SOFT TISSUES: Unremarkable. No soft tissue swelling or gas. No radiopaque foreign body. RAD/Elbow min 3 Views IMPRESSION: Negative right elbow. Electronically Signed: Dhavla Newsome MD at 22:39 EDT ,
--- NOTE | 2023-04-23 22:23 | EDS_ITS ---
HPI History of Present Illness Chief Complaint: Upper Extremity Injury Detail of Chief Complaint: Injury right elbow status post fall Informant: patient Occured/Mechanism Mechanism/Context: Yes blunt trauma, Yes fall and Yes same level fall Onset/Context/Timing Onset: Hours Context: Sudden Onset Timing: Continuous Quality of Pain: Dull and Aching Location: Right elbow Current Severity: Mild Maximum Severity: Severe Worsened by: Touch and movement Relieved by: Nothing Associated Symptoms Associated Symptoms: Positive for Loss of Funtion; Negative for Parasthesia or Weakness Narrative Narrative: Patient is a 27-year-old [id number] woman who presents with elbow injury. She had a fall onto her elbow. She is reluctant to move it. She denies paresthesia, anesthesia or motor weakness. She denies head trauma. Denies neck pain. Denies cardiac or respiratory symptoms. Prior similar symptoms: No Recent Illness/Hospitalization: No PFSH PFSH Medical History Abdominal pain Cholelithiasis Depression with anxiety Diarrhea Gestational diabetes Gestational diabetes requiring insulin Nausea Polyhydramnios depression hemorrhage (spontaneous vaginal delivery) Thyroid disorder Home Medications acetaminophen 325 mg capsule (Tylenol) 325 mg PO Q6H PRN Pain 01/17/22 [History Last Taken 01/17/22 00:30] ibuprofen 600 mg tablet 600 mg PO Q6H PRN pain #30 tabs 01/19/22 [Rx Last Taken Unknown] Allergy/AdvReac Type Severity Reaction Status Date / Time No Known Allergies Allergy Verified 04/23/23 22:03 Family History Grandfather Arthritis Hypertension High cholesterol Diabetes Father Diabetes High cholesterol Hypertension Thyroid disorder Surgical History Excision tumor behind right ear S/P laparoscopic cholecystectomy Social History Smoking Status: Never smoker alcohol intake: never substance use type: does not use ROS ROS ED Musculoskeletal Musculoskeletal: Denies back pain, myalgias or neck pain Integumentary Denies rash Neurologic Neurologic: Denies paresthesias or weakness Hematologic/Lymphatic Hematologic/Lymphatic: Denies easy bleeding or easy bruising EXAM Physical Exam Const Vital Signs: 04/23/23 22:03 Temperature 97.4 F L Temperature Source Temporal Pulse Rate 93 Respiratory Rate 16 Blood Pressure 137/99 H Blood Pressure Mean 111 Pulse Ox 99 Positive well nourished, well developed and obese General Appearance ED: well developed and NAD; Negative for cyanotic or diaphoretic Nutritional Appearance: obese HEENT normocephalic and atraumatic Eyes PERRL and EOMs intact bilaterally Neck full ROM and supple Resp normal respiratory effort and clear to auscultation bilaterally Cardio regular rate, regular rhythm, S1 normal heart sound, S2 normal heart sound and no murmurs Back/Spine Cervical Spine: Negative for cervical spine tenderness Extremity normal to inspection Extremity Narrative: There is pain outpatient over the olecranon process. She has mild discomfort over the radial head. There is no pain the patient over the lateral epicondyle. She complains of pain over the medial condyle General Extremety ED: Negative for edema General Extremity: Negative for edema Neuro oriented x3, CN's II-XII intact bilaterally, no focal motor deficits and no sensory deficits noted Neuro Narrative: Median, radial and ulnar function intact right upper extremity Sensorium / Orientation: alert Psych mental status grossly normal Skin Lesions: no lesions Rashes: no rashes Trauma: no lacerations or abrasions MDM MDM MDM Narrative Medical decision making narrative: Since patient does have pain outpatient with olecranon process reluctant to move it will obtain x-ray to assess for contusion versus fracture. Radiography Chest X-Ray - ED: Read by ED Physician (Three-view x-ray of the elbow was independently interpreted by me at 2222 reveals no fracture. There is no anterior posterior fat pad. There is no evidence subluxation or dislocation.) Discharge Plan Triage Chief Complaint: Upper Extremity Injury ED Provider: Sean Biggs Dx/Rx/DC Orders Clinical Impression: Contusion of right elbow, initial encounter Instructions: ED Contusion, Elbow Prescriptions: No Action acetaminophen [Tylenol] 325 mg Capsule 325 mg PO Q6H PRN (Reason: Pain) ibuprofen 600 mg tablet 600 mg PO Q6H PRN (Reason: pain) Qty: 30 0RF Primary Care Provider: Holly Boone NP Referrals: Holly Boone PAINTING AND COATING WORKER, PAINTING AND COATING WORKER-C [Primary Care Provider] - 1 Week if not improving Activity Restrictions/Additional Instructions: 1. Apply ice to right elbow 6-10 times a day. 2. You may take either 4 ibuprofen tablets every 8 hours or 2 Aleve tablets every 12 hours the next 3 to 5 days for pain Disposition Disposition: Home, Self Care
[2023-04-23 22:37] VITALS: RESP 16
== END 2023-04-23 22:39 | disposition home or self-care (01) ==
PROVIDERS: Emergency Provider Emergency Medicine; PCP Nurse Practitioner Family; Visit Provider Emergency Medicine
DX: S50.01XA Contusion of right elbow, initial encounter (principal); E66.9 Obesity, unspecified; W18.30XA Fall on same level, unspecified, initial encounter
CPT/HCPCS: 73080; 99282